=== PATIENT | female | born 1970 | race Caucasian/White ===

== ENCOUNTER → 2017-03-06 | Outpatient (CLI) | payer OTHER ==
[~2017-03-06] MED LIST: BUPR150T11 PO; FLUO20CA8 PO; LAMO200T25 PO; LEVO125T PO; LOVA20TA2 PO; TOPI100T8 PO; ZOLP10TA4 PO
[2017-03-06 17:22] LABS: POTASSIUM 4.2 mmol/L (3.5-5.1)
[2017-03-06 18:44] LABS: BARBITURATES NEG (NEG); BENZODIAZEPINES NEG (NEG); CANNABINOIDS NEG (NEG); COCAINE NEG (NEG); METHADONE NEG (NEG); OPIATES NEG (NEG); PHENCYCLIDINE NEG (NEG)
== END | disposition home or self-care (01) ==
LOC: LAB 16:23
PROVIDERS: ATTEND Psychiatry & Neurology Neurology
DX: G47.419 Narcolepsy without cataplexy (principal)
CPT/HCPCS: 36415; 80051; 80307; 82306; 82607; G0479

== ENCOUNTER → 2017-05-01 | Outpatient (CLI) | payer OTHER ==
--- NOTE | 2017-05-03 15:39 | SLEEP ---
DATE OF STUDY: POLYSOMNOGRAM OBJECTIVE: The patient is a 47-year-old female with excessive daytime somnolence. Height 5 feet 2 inches, weight 165 pounds. Sleep architecture is characterized by sleep efficiency of 64% across 7.2 hours of recording time. No REM sleep is observed. Stage volumes are was normal. Sleep onset latency is 13 minutes. Respiratory monitoring shows 12 apneas, 13 hypopneas for an overall respiratory disturbance index of 5.4 events per hour of sleep. This sleep study shows the minimum oxygen saturation is 90%. Periodic limb movements of sleep occur at the rate of 11 per hour, 2 per hour associated with arousal. No cardiac arrhythmias are observed. IMPRESSION: Abnormal polysomnogram showing a minimal amount of sleep apnea, apnea-hypopnea index of 5.4 compares to a normal of less than 5.0. This degree of apnea is unlikely to cause any excessive daytime problems. Please also see the separate report for the multiple sleep latency test. Thank you for letting us help with the patient's care. SEFERINO CLAYTON MD DR: JOHANNY/heather JOB#: [id number] / [id number] DANIEL Rich MD, TERRY MD
--- NOTE | 2017-05-03 15:39 | SLEEP ---
DATE OF STUDY: STUDY: Multiple sleep latency test. OBJECTIVE: The patient is a 47-year-old female with excessive somnolence. INTERPRETATION: The sleep onset latency for nap 1 is 20 minutes as the patient did not fall asleep. The sleep onset latency for nap 2 is 12 minutes, for nap 3 is 15.5 minutes, for nap 4 is 1.0 minute, and for nap 5 is 2.5 minutes. REM sleep is not observed on any of the naps. The mean sleep latency across 5 naps is 10.2 minutes. IMPRESSION: Normal multiple sleep latency test failing to show any evidence of narcolepsy or other forms of excessive somnolence. Please also see the previous night's polysomnogram report. Thank you for letting us help with the patient's care. SEFERINO CLAYTON MD DR: JOHANNY/heather JOB#: [id number] / [id number] DANIEL Rich MD, TERRY MD
== END | disposition home or self-care (01) ==
LOC: SLPLAB 19:02
PROVIDERS: ATTEND Psychiatry & Neurology Neurology
DX: G47.10 Hypersomnia, unspecified (principal); G47.419 Narcolepsy without cataplexy
CPT/HCPCS: 95805; 95810

== ENCOUNTER → 2017-05-25 | Outpatient (CLI) | payer OTHER | END | disposition home or self-care (01) | LOC: RT 08:58 | DX: R41.89 Other symptoms and signs involving cognitive functions and awareness (principal) | CPT/HCPCS: 95816 ==

== ENCOUNTER → 2017-06-26 | Outpatient (CLI) | payer OTHER | END | disposition home or self-care (01) | LOC: RT 07:56 | DX: R41.89 Other symptoms and signs involving cognitive functions and awareness (principal) | CPT/HCPCS: 95816 ==

== ENCOUNTER → 2017-09-20 | Outpatient (CLI) | payer OTHER | END | disposition home or self-care (01) | LOC: EKG 15:11 | DX: R51 Headache (principal) | CPT/HCPCS: 93005 ==

== ENCOUNTER → 2018-01-18 | Outpatient (CLI) | payer OTHER ==
--- NOTE | 2018-01-18 12:41 | EEG ---
DATE OF SERVICE: 01/18/2018 EEG NUMBER: [id number] OBJECTIVE: This is a 47-year-old female patient with history of cognitive functional impairment and confusional episodes. EEG was requested to evaluate cerebral activity and help rule out subclinical seizure. METHODS: Twenty electrodes were applied according to the international 10-20 electrode placement system. EKG monitoring, hyperventilation, intermittent photic stimulation, monopolar and bipolar montages are routinely utilized. The record was obtained on a digital system with video monitoring. FINDINGS: 1. Background: The patient was recorded in the awake and drowsy states. No actual sleep state was recorded. The overall background amplitude is 15-40 microvolts. A posterior dominant rhythm of 8-10 Hz is observed. 2. Abnormalities: No specific epileptiform discharge or electrographic seizure is seen. No focal or diffuse slowing. 3. Activation: Hyperventilation was performed with good efforts and normal response. Intermittent photic stimulation was performed with photic driving. IMPRESSION: This EEG is a normal study for the awake and drowsy states. No sleep state was recorded. No focal, lateralizing, specific epileptiform discharge or electrographic seizure is seen. DANIEL JENKINS MD DR: KEN/heather JOB#: [id number] / [id number] NATALIIA
== END | disposition home or self-care (01) ==
LOC: RT 08:59
PROVIDERS: ATTEND Psychiatry & Neurology Neurology
DX: G31.84 Mild cognitive impairment of uncertain or unknown etiology (principal)
CPT/HCPCS: 95816

== ENCOUNTER → 2018-08-15 | Outpatient (CLI) | payer OTHER ==
--- NOTE | 2018-08-15 13:31 | KCIC ---
EXAM: Lumbar spine, 5 views. HISTORY: Pain. Radiculopathy. COMPARISON: None. FINDINGS: 5 views of the lumbar spine are obtained. There is moderate lumbar levoscoliosis centered at L3. There is no significant listhesis. There is degenerative endplate remodeling with disc space narrowing and osteophytosis primarily along the right aspect of L3-L4. This corresponds with the level of maximum scoliotic curvature. There is additional endplate remodeling at the remainder of the lumbar levels. IMPRESSION: 1. Lumbar levoscoliosis centered at L3. 2. Multilevel degenerative change, primarily along the right aspect of L3-L4. Electronically signed by: Dahiana Pacheco MD (08/15/2018 1:28 PM) [email or web address]
== END | disposition home or self-care (01) ==
LOC: KCIC 12:14
PROVIDERS: ATTEND Family Medicine
DX: M47.26 Other spondylosis with radiculopathy, lumbar region (principal); M48.061 Spinal stenosis, lumbar region without neurogenic claudication; M41.86 Other forms of scoliosis, lumbar region
CPT/HCPCS: 72110